=== PATIENT | female | born 1975 | race Caucasian/White ===

== ENCOUNTER 2017-08-02 07:38 | Day surgery (SDC) | payer OTHER ==
[2017-08-02 07:57] LABS: HCG,QUAL RESULT NEGATIVE (NEGATIVE)
[2017-08-02] MEDS ORDERED: MEPERIDINE HCL/PF 100 MG/ML AMP ONE (08:07)
[2017-08-02] MEDS ORDERED: MIDAZOLAM HCL 5 MG/5 ML VIAL ONE (08:07)
[2017-08-02] MEDS: MIDAZOLAM HCL 5 MG/5 ML VIAL ONE ×2 (09:40→09:43)
[2017-08-02 15:02] VITALS: BP_SYST 136
== END 2017-08-02 10:55 | disposition home or self-care (01) ==
LOC: SDS 07:38
PROVIDERS: ATTEND Internal Medicine Gastroenterology
DX: K29.70 Gastritis, unspecified, without bleeding (principal); K44.9 Diaphragmatic hernia without obstruction or gangrene; E66.01 Morbid (severe) obesity due to excess calories; Z68.43 Body mass index [BMI] 50.0-59.9, adult
CPT/HCPCS: 36415; 43239; 84703; 87081; J2175; J2250